=== PATIENT | female | born 1975 ===

== ENCOUNTER 2019-12-21 20:16 | Emergency (ER) | payer BC, MEDICARE, MEDICAID ==
[~2019-12-21] VITALS: Ht 165.1 cm; Wt 62.7 kg
[~2019-12-21 20:16] MED LIST: AMOX-580 PO; ATOR20TA66 PO; CIPR7.5D LEFT EAR; DEXT20CA4 PO; LEVO50TA8 PO; NORT50CA PO; PANT40TA4 PO; RIZA10TA28 PO; TRAZ-256 PO; VENL150C58 PO
[2019-12-21] MEDS ORDERED: ketorolac trometh inj. 60 MG/2 ML VIAL IM ONE (21:10)
[2019-12-21] MEDS ORDERED: cloNIDine 0.1 mg tablet PO ONE (21:10)
[2019-12-21] MEDS ORDERED: diphenhydrAMINE 50 mg/ml inj IM ONE (21:10)
[2019-12-21] MEDS ORDERED: metoclopramide 5 mg/ml inj IM ONE (21:10)
[2019-12-21] MEDS ORDERED: dexamethasone sod phosphate 10mg/ml inj PO STA (21:13)
[2019-12-21] MEDS ORDERED: oxyCODONE/APAP 10/325mg tablet PO ONE (22:20)
[2019-12-21] MEDS ORDERED: SUMAtriptan succ. 6 MG/0.5ml vial SQ ONE (22:20)
[2019-12-21 22:45] VITALS: BP 114/53
== END 2019-12-21 22:50 | disposition home or self-care (01) ==
LOC: ER 20:17
DX: G43.909 Migraine, unspecified, not intractable, without status migrainosus (principal); H53.8 Other visual disturbances; Z88.1 Allergy status to other antibiotic agents; Z79.899 Other long term (current) drug therapy
CPT/HCPCS: 96372; 99284; J1100; J1200; J1885; J2765; J3030